=== PATIENT | female | born 1970 | race Caucasian/White ===

== ENCOUNTER 2019-09-30 08:31 | Emergency (ER) | payer MEDICAID, OTHER ==
[2019-09-30 08:36] VITALS: BP 112/68; PULSE 74; RESP 20; TEMP 98.2
--- NOTE | 2019-09-30 09:01 | ED ---
Fall HPI - General Chief Complaint: Fall Stated Complaint: [facility] - fall Time Seen by Provider: 09/30/19 08:38 Source: patient, RN notes reviewed Mode of arrival: ambulatory Limitations: no limitations - History of Present Illness Initial Comments: 49-year-old female presents emergency Department with chief complaint of slip, fall, head injury. Patient states that she caught her foot on a piece of plastic on the ground following shaking her head on the concrete floor. Patient is an employee here. Patient states that she feels slightly nauseated and went of right-sided headache no visual disturbance denies any photophobia she does have mild right-sided muscle pain. She also states that she bumped her right knee but she is able to ambulate she states it is minimally swollen. Patient denies any focal weakness, confusion. - Related Data Previous Rx's Medication Instructions Recorded Ibuprofen [Motrin] 600 mg PO Q6HR PRN #30 tab 08/08/14 Fluticasone Propionate [Flonase 1 - 2 spray EA NOSTRIL DAILY 5 04/11/15 Allergy Relief] Days ml predniSONE 60 mg PO DAILY 5 Days tab 04/11/15 Allergies Allergy/AdvReac Type Severity Reaction Status Date / Time No Known Allergies Allergy Verified 09/30/19 08:36 Review of Systems ROS Statement: Those systems with pertinent positive or pertinent negative responses have been documented in the HPI. ROS Other: All systems not noted in ROS Statement are negative. Past Medical History Past Medical History: No Reported History History of Any Multi-Drug Resistant Organisms: None Reported Past Surgical History: Section Past Psychological History: No Psychological Hx Reported Smoking Status: Never smoker Past Alcohol Use History: Occasional Past Drug Use History: None Reported General Exam Limitations: no limitations General appearance: alert, in no apparent distress Head exam: Present: atraumatic, normocephalic, normal inspection Eye exam: Present: normal appearance, PERRL, EOMI. Absent: scleral icterus, conjunctival injection, periorbital swelling ENT exam: Present: normal exam, normal oropharynx, mucous membranes moist, TM's normal bilaterally Neck exam: Present: normal inspection, tenderness (Right paraspinal), full ROM. Absent: meningismus, lymphadenopathy Respiratory exam: Present: normal lung sounds bilaterally. Absent: respiratory distress, wheezes, rales, rhonchi, stridor Cardiovascular Exam: Present: regular rate, normal rhythm, normal heart sounds. Absent: systolic murmur, diastolic murmur, rubs, gallop, clicks Extremities exam: Present: full ROM, tenderness (Minimal right knee, tenderness), normal capillary refill. Absent: normal inspection (Small area of ecchymosis on the right knee), pedal edema, joint swelling, calf tenderness Back exam: Present: normal inspection, full ROM. Absent: tenderness Neurological exam: Present: alert, oriented X3, CN II-XII intact, reflexes normal. Absent: motor sensory deficit Skin exam: Present: warm, dry, intact, normal color. Absent: rash Course Vital Signs 09/30/19 08:34 Temperature 98.2 F Pulse Rate 74 Respiratory 20 Rate Blood Pressure 112/68 O2 Sat by Pulse 99 Oximetry Medical Decision Making - Medical Decision Making CT of the brain and C-spine are unremarkable for acute findings. Patient had a mechanical fall when they've no major trauma. Patient will be discharged return parameters were discussed. Disposition Clinical Impression: Fall, Head injury Disposition: HOME SELF-CARE Condition: Stable Instructions (If sedation given, give patient instructions): Head Injury (ED) Additional Instructions: Please return to the Emergency Department if symptoms worsen or any other c oncerns. Is patient prescribed a controlled substance at d/c from ED?: No Referrals: None,Stated [Primary Care Provider] - 1-2 days Time of Disposition: 10:02
[2019-09-30] MEDS: ACETAMINOPHEN TAB 325 MG TAB PO STA (09:13)
--- NOTE | 2019-09-30 09:46 | CT ---
EXAMINATION TYPE: CT brain blank moore DATE OF EXAM: 09/30/2019 COMPARISON: HISTORY: Fall, struck back of head on floor, pain CT DLP: 1195.7 mGycm Automated exposure control for dose reduction was used. TECHNIQUE: CT scan of the head and cervical spine are performed without contrast. FINDINGS: There is no acute intracranial hemorrhage, mass effect, or midline shift identified. The ventricles and sulci are within normal limits in size. The globes are intact and the visualized sin uses are clear. Cephalohematoma noted in the posterior parietal region towards the convexity. Cervical spine is visualized in its entirety from C1 through upper thoracic levels and demonstrates s atisfactory alignment without evidence of acute fracture or dislocation. Prevertebral soft tissue ap pears within normal limits. The C1-C2 articulation is unremarkable. There is multilevel spondylosis . Thoracic spinal curvature is present. IMPRESSION: 1. There is no acute fracture or dislocation evident in the cervical spine. 2. No acute intracranial hemorrhage, mass effect, or midline shift is seen.
== END 2019-09-30 10:19 | disposition home or self-care (01) ==
LOC: EC 08:31
DX: S09.90XA Unspecified injury of head, initial encounter (principal); M79.89 Other specified soft tissue disorders; W01.198A Fall on same level from slipping, tripping and stumbling with subsequent striking against other object, initial encounter; Y92.69 Other specified industrial and construction area as the place of occurrence of the external cause; Y99.0 Civilian activity done for income or pay
CPT/HCPCS: 70450; 72125; 99283